=== PATIENT | male | born 1955 | race American Indian/Alaskan Native ===

== ENCOUNTER 2018-04-07 04:30 | Emergency (ER) | payer SELFPAY ==
[2018-04-07 05:21] LABS: Basophils % (Auto) 0.5 % (0.0-1.8); Hemoglobin 14.9 gm/dl (11.8-15.2); Lymphocytes # (Auto) 0.5 K/mm3 (1.2-5.4); Lymphocytes % (Auto) 10.7 % (13.4-35.0); Mean Corpuscular HGB Conc 34 % (32-34); Mean Corpuscular Volume 85 fl (84-94); Monocytes # (Auto) 0.1 K/mm3 (0.0-0.8); Monocytes % (Auto) 3.1 % (0.0-7.3); Platelet Count 161 K/mm3 (140-440); Red Blood Count 5.18 M/mm3 (3.65-5.03); Red Cell Distribution Width 14.8 % (13.2-15.2)
[2018-04-07 05:46] LABS: Alanine Aminotransferase 12 units/L (7-56); Albumin 4.3 g/dL (3.9-5); BUN/Creatinine Ratio 12; Blood Urea Nitrogen 7 mg/dL (9-20); Calcium 8.6 mg/dL (8.4-10.2); Hemolysis Index 77
[2018-04-07 06:28] LABS: Bilirubin,Urine NEG (Negative); Blood,Urine MOD (Negative); Color,Urine Yellow (Yellow); Hyaline Casts,Urine 1 /LPF; Mucus,Urine FEW /HPF; Protein,Urine <15 mg/dL mg/dL (Negative); Urobilinogen,Urine < 2.0 mg/dL (<2.0)
[2018-04-07] MEDS ORDERED: TYLENOL PO ONE (08:12)
--- NOTE | 2018-04-07 08:42 | Emergency Department Report ---
ED General Adult HPI - General Chief complaint: Abdominal Pain Stated complaint: URINARY RETENTION Time Seen by Provider: 04/07/18 06:39 Source: patient, EMS Mode of arrival: Stretcher Limitations: No Limitations - History of Present Illness Initial comments: This is a 63-year-old male with no primary care. He believes his hernia has caused urinary retention. He has not urinated for several hours. He has a right inguinal hernia which he's had for years and is reducible. He states he's never seen a surgeon there. He is also never seen a urologist. He is not complaining of any substantial pain remarkably. -: Gradual, hour(s) Location: abdomen (suprapubic discomfort) Radiation: non-radiation Severity scale (0 -10): 6 Quality: dull Consistency: intermittent Improves with: none Worsens with: none Associated Symptoms: denies other symptoms Treatments Prior to Arrival: none (except for urinary retention) - Related Data Previous Rx's Medication Instructions Recorded Last Taken Type Tramadol HCl [Ultram] 50 mg PO Q6H PRN #7 tablet 04/07/18 Unknown Rx Allergies Allergy/AdvReac Type Severity Reaction Status Date / Time No Known Allergies Allergy Unverified 04/07/18 04:44 ED Review of Systems ROS: Stated complaint: URINARY RETENTION Other details as noted in HPI Constitutional: denies: chills, fever Eyes: denies: eye pain, eye discharge, vision change ENT: denies: ear pain, throat pain Respiratory: denies: cough, shortness of breath, wheezing Cardiovascular: denies: chest pain, palpitations Endocrine: no symptoms reported Gastrointestinal: denies: abdominal pain, nausea, diarrhea Genitourinary: as per HPI, other. denies: urgency, dysuria Musculoskeletal: denies: back pain, joint swelling, arthralgia Skin: denies: rash, lesions Neurological: denies: headache, weakness, paresthesias Psychiatric: denies: anxiety, depression Hematological/Lymphatic: denies: easy bleeding, easy bruising ED Past Medical Hx - Past Medical History Previous Medical History?: Yes Additional medical history: Hernia - Surgical History Past Surgical History?: No - Social History Smoking Status: Current Every Day Smoker Substance Use Type: Alcohol - Medications Home Medications: Home Medications Medication Instructions Recorded Confirmed Last Taken Type Tramadol HCl [Ultram] 50 mg PO Q6H PRN #7 tablet 04/07/18 Unknown Rx ED Physical Exam - General Limitations: No Limitations General appearance: alert, in no apparent distress - Head Head exam: Present: atraumatic, normocephalic - Eye Eye exam: Present: normal appearance. Absent: scleral icterus - ENT ENT exam: Present: mucous membranes moist - Neck Neck exam: Present: normal inspection - Respiratory Respiratory exam: Present: normal lung sounds bilaterally. Absent: respiratory distress - Cardiovascular Cardiovascular Exam: Present: regular rate, normal rhythm. Absent: systolic murmur, diastolic murmur, rubs, gallop - GI/Abdominal GI/Abdominal exam: Present: soft, distended (obvious distended bladder to the suprapubic region below the umbilicus), normal bowel sounds, hernia (reducible right inguinal hernia). Absent: tenderness, guarding, rebound, rigid - Rectal Rectal exam: Present: deferred - Extremities Exam Extremities exam: Present: normal inspection - Back Exam Back exam: Present: normal inspection - Neurological Exam Neurological exam: Present: alert, oriented X3, CN II-XII intact. Absent: motor sensory deficit - Psychiatric Psychiatric exam: Present: normal affect, normal mood - Skin Skin exam: Present: warm, dry, intact, normal color. Absent: rash ED Course Vital Signs 04/07/18 04/07/18 04/07/18 04:43 04:45 04:46 Temperature 98.3 F Pulse Rate 77 80 81 Respiratory 13 20 13 Rate Blood Pressure 144/77 142/77 O2 Sat by Pulse 94 96 96 Oximetry 04/07/18 04/07/18 04/07/18 05:15 05:21 05:30 Temperature Pulse Rate Respiratory 21 16 22 Rate Blood Pressure 128/70 128/70 O2 Sat by Pulse 96 97 95 Oximetry 04/07/18 04/07/18 04/07/18 05:45 06:00 06:30 Temperature Pulse Rate Respiratory 19 22 17 Rate Blood Pressure 115/70 119/71 126/81 O2 Sat by Pulse 94 95 96 Oximetry 04/07/18 04/07/18 04/07/18 06:45 07:00 07:15 Temperature Pulse Rate 84 Respiratory 20 20 20 Rate Blood Pressure 125/79 122/65 131/79 O2 Sat by Pulse 97 94 96 Oximetry - Reevaluation(s) Reevaluation #1: Whitlock catheter with residual volume of 1200. Patient's symptoms improved. The right inguinal hernia was reducible. He is referred to GI and for follow-up. 04/07/18 08:39 Reevaluation #2: I suspect patient's mild hyperkalemia will clear up with diuresis post Whitlock. 04/07/18 08:40 ED Medical Decision Making - Lab Data Result diagrams: 04/07/18 05:08 04/07/18 05:08 Laboratory Results - last 24 hr 04/07/18 04/07/18 04/07/18 05:08 05:08 06:23 WBC 4.8 RBC 5.18 H Hgb 14.9 Hct 44.0 MCV 85 MCH 29 MCHC 34 RDW 14.8 Plt Count 161 Lymph % (Auto) 10.7 L [place] % (Auto) 3.1 Eos % (Auto) 0.0 Baso % (Auto) 0.5 Lymph # 0.5 L [place] # 0.1 Eos # 0.0 Baso # 0.0 Seg Neutrophils % 85.7 H Seg Neutrophils # 4.1 Sodium 133 L Potassium 5.1 H Chloride 93.8 L Carbon Dioxide 22 Anion Gap 22 BUN 7 L Creatinine 0.6 L Estimated GFR > 60 BUN/Creatinine Ratio 12 Glucose 74 L Calcium 8.6 Total Bilirubin 1.00 AST 27 ALT 12 Alkaline Phosphatase 49 Total Protein 6.9 Albumin 4.3 Albumin/Globulin Ratio 1.7 Lipase 18 Urine Color Yellow Urine Turbidity Clear Urine pH 5.0 Ur Specific [place] 1.004 Urine Protein <15 mg/dl Urine Glucose (UA) Neg Urine Ketones Neg Urine Blood Mod Urine Nitrite Neg Urine Bilirubin Neg Urine Urobilinogen < 2.0 Ur Leukocyte Esterase Neg Urine WBC (Auto) 1.0 Urine RBC (Auto) 1.0 U Epithel Cells (Auto) < 1.0 Hyaline Casts 1 Urine Mucus Few Critical care attestation.: If time is entered above; I have spent that time in minutes in the direct care of this critically ill patient, excluding procedure time. ED Disposition Clinical Impression: Bladder outlet obstruction, Reducible right inguinal hernia Disposition: - TO HOME OR SELFCARE Is pt being admited?: No Does the pt Need Aspirin: No Condition: Stable Instructions: Urinary Leg Bag (GEN), Whitlock Catheter Placement and Care (ED), Inguinal Hernia (ED) Additional Instructions: Return to the emergency department any acute change or problem. See referrals for appropriate problems and primary care. Prescriptions: Tramadol HCl [Ultram] 50 mg PO Q6H PRN #7 tablet PRN Reason: Pain, Moderate (4-6) Referrals: DORIS SAMUELS MD [Primary Care Provider] - 3-5 Days [facility] [Provider Group] - 3-5 Days MARCIN HOOKS MD [Staff Physician] - 3-5 Days [facility] [Provider Group] - 2-3 Days Time of Disposition: 08:43
[2018-04-07 10:18] VITALS: BP 110/66
== END 2018-04-07 10:15 | disposition home or self-care (01) ==
LOC: ED 04:30
DX: N32.0 Bladder-neck obstruction (principal); K40.90 Unilateral inguinal hernia, without obstruction or gangrene, not specified as recurrent; F17.200 Nicotine dependence, unspecified, uncomplicated
CPT/HCPCS: 36415; 51702; 80053; 81001; 83690; 85025

== ENCOUNTER 2018-04-13 12:34 | Emergency (ER) | payer SELFPAY ==
--- NOTE | 2018-04-13 12:44 | Emergency Department Report ---
Chief Complaint: Urogenital-Male Stated Complaint: CATHETER REMOVAL Time Seen by Provider: 04/13/18 12:42 - HPI History of Present Illness: pt had hatch cath placed last week here in ER has not been able to get into urology and pt wants cath out pt advised that the problem causing the retention has not been addressed and that removing cath too soon without eval may result in having to put it back in. No fever no pain no life threat identified Medical screen provided - Exam Vital Signs: Vital Signs 04/13/18 12:40 Temperature 98.4 F Pulse Rate 55 L Respiratory 18 Rate Blood Pressure 111/65 O2 Sat by Pulse 96 Oximetry MSE screening note: Focused history and physical exam performed. Due to findings the following was ordered: ED Disposition for MSE Condition: Stable
--- NOTE | 2018-04-13 16:21 | Emergency Department Report ---
ED Male HPI - General Chief complaint: Urogenital-Male Stated complaint: CATHETER REMOVAL Time Seen by Provider: 04/13/18 12:42 Source: patient Mode of arrival: Ambulatory Limitations: No Limitations - History of Present Illness Initial comments: This is a 63-year-old male here report that he came here on 04/07/2018 with abdominal pain and he had not urinated for a few hours and patient had a catheter placed and was referred to urology and also surgery. He was referred to surgery for right inguinal hernia which he said he had for years. He denies any pain at present. He just said that he feels like he cannot urinate now and he wants the catheter out. Patient did not see urology as yet he said he has an appointment for next Monday at [facility]. He has not seen surgery as yet. Denies any fever or chills. He reports he is having some burning and he thinks this when his bladder is empty. Denies any abdominal pain. He said the c atheter is draining very well. Denies any back pain. Denies any nausea or vomiting. MD Complaint: dysuria, other (here for catheter removal) Onset/Timin -: days(s) Severity scale (0 -10): 0 Improves with: none Worsens with: none urinary retention, dysuria. denies: discharge, swelling, mass - Related Data Sexually active: No Previous Rx's Medication Instructions Recorded Last Taken Type Tramadol HCl [Ultram] 50 mg PO Q6H PRN #7 tablet 04/07/18 Unknown Rx Ciprofloxacin HCl [Cipro] 500 mg PO Q12H 10 Days #20 tablet 04/13/18 Unknown Rx Phenazopyridine [Pyridium] 100 mg PO TID PRN 3 Days #9 tab 04/13/18 Unknown Rx Allergies Allergy/AdvReac Type Severity Reaction Status Date / Time No Known Allergies Allergy Verified 04/13/18 12:36 ED Review of Systems ROS: Stated complaint: CATHETER REMOVAL Other details as noted in HPI Constitutional: denies: chills, fever Respiratory: denies: cough, shortness of breath, wheezing Cardiovascular: denies: chest pain, palpitations Gastrointestinal: denies: abdominal pain, nausea, vomiting Genitourinary: dysuria, other (here for catheter removal). denies: frequency, hematuria, discharge Musculoskeletal: denies: back pain, joint swelling, arthralgia, myalgia Skin: denies: rash Neurological: denies: headache ED Past Medical Hx - Past Medical History Previous Medical History?: Yes Additional medical history: Hernia - Surgical History Past Surgical History?: Yes - Family History Family history: hypertension - Social History Smoking Status: Current Every Day Smoker Substance Use Type: None - Medications Home Medications: Home Medications Medication Instructions Recorded Confirmed Last Taken Type Tramadol HCl [Ultram] 50 mg PO Q6H PRN #7 tablet 04/07/18 Unknown Rx Ciprofloxacin HCl [Cipro] 500 mg PO Q12H 10 Days #20 tablet 04/13/18 Unknown Rx Phenazopyridine [Pyridium] 100 mg PO TID PRN 3 Days #9 tab 04/13/18 Unknown Rx ED Physical Exam - General Limitations: No Limitations General appearance: alert, in no apparent distress - Head Head exam: Present: atraumatic, normocephalic, normal inspection, other (normal exam) - Eye Eye exam: Present: normal appearance, PERRL, EOMI Pupils: Present: normal accommodation - ENT ENT exam: Present: normal orophraynx, mucous membranes moist, TM's normal bilaterally, normal external ear exam, other (patient) - Neck Neck exam: Present: normal inspection, full ROM. Absent: tenderness, lymphadenopathy - Respiratory Respiratory exam: Present: normal lung sounds bilaterally. Absent: respiratory distress, chest wall tenderness - Cardiovascular Cardiovascular Exam: Present: normal rhythm, bradycardia, normal heart sounds - GI/Abdominal GI/Abdominal exam: Present: soft. Absent: distended, tenderness, rigid - exam: Present: normal inspection, circumcision, other (Whitlock catheter in place). Absent: testicular tenderness, urethral discharge, scrotal swelling, vertical testicular lie External exam: Present: normal external exam, other (urine is slightly dark). Absent: erythema, swelling, lesions, lacerations, ecchymosis, bleeding - Expanded Exam Expanded Male exam: Absent: phimosis, paraphimosis, penile swelling, lesions, induration, erythema, perineal induration, balanitis, priapism, other exam: Inguinal Hernia: Right (reducible) - Extremities Exam Extremities exam: Present: normal inspection, full ROM, normal capillary refill. Absent: tenderness, pedal edema, joint swelling, calf tenderness - Back Exam Back exam: Present: normal inspection, full ROM, other (No cce. + 2 pulses in all extremities, no neurovascular compromise). Absent: tenderness, CVA t enderness (R), CVA tenderness (L), muscle spasm, paraspinal tenderness, vertebral tenderness, rash noted - Neurological Exam Neurological exam: Present: alert, oriented X3 (right ear), normal gait, reflexes normal, other. Absent: motor sensory deficit - Psychiatric Psychiatric exam: Present: normal affect, normal mood - Skin Skin exam: Present: warm, dry, intact, normal color. Absent: rash ED Course Vital Signs 04/13/18 04/13/18 04/13/18 12:40 18:13 18:14 Temperature 98.4 F Pulse Rate 55 L 99 H 95 H Respiratory 18 16 Rate Blood Pressure 111/65 121/77 Blood Pressure [Right] O2 Sat by Pulse 96 98 98 Oximetry 04/13/18 19:45 Temperature 98.4 F Pulse Rate 92 H Respiratory 13 Rate Blood Pressure Blood Pressure 120/74 [Right] O2 Sat by Pulse 99 Oximetry - Reevaluation(s) Reevaluation #1: 04/13/18 19:17 Patient stable throughout ED course. He is making in large amount of urine from Whitlock deficits attached leg bag. Patient has UTI so he has an appointment with urology next Monday and I told him that he will need to keep the catheter in until he sees urology. ED Medical Decision Making - Lab Data Lab Results 04/13/18 Range/Units 16:34 Urine Color Jessica (Yellow) Urine Turbidity Slightly-cloudy (Clear) Urine pH 5.0 (5.0-7.0) Ur Specific [place] 1.031 H (1.003-1.030) Urine Protein 100 mg/dl (Negative) mg/dL Urine Glucose (UA) Neg (Negative) mg/dL Urine Ketones Neg (Negative) mg/dL Urine Blood Lg (Negative) Urine Nitrite Neg (Negative) Urine Bilirubin Neg (Negative) Urine Urobilinogen 4.0 (<2.0) mg/dL Ur Leukocyte Esterase Tr (Negative) Urine WBC (Auto) 12.0 H (0.0-6.0) /HPF Urine RBC (Auto) > 182.0 (0.0-6.0) /HPF Urine Mucus 3+ /HPF Urine culture sent home - Medical Decision Making This is a 63-year-old male here for Whitlock catheter removal that was placed on 04/07/2018 for obstruction due to hernia. Patient has an appointment with [facility] for one week from today and he was found to have a urinary tract infection. I discussed lab report with them, diagnosis and told him that he will need to see urologist before catheter can come up. Patient does not have any abdominal pain but he was having urinary burning as he said when he says the catheter is emptying in leg bag. Urine culture sent. Patient discharged home in stable condition with prescription for Pyridium and ciprofloxacin. He understands that he needs to follow up with urologist on appointment today and also he was referred to surgeon for hernia when he was here last He said he called to schedule an appointment. Vital signs stable afebrile and in no acute distress. I also told him that he needs to clean the Whitlock catheter around were his penile opening is taking with soap and warm water and he voiced understanding Critical care attestation.: If time is entered above; I have spent that time in minutes in the direct care of this critically ill patient, excluding procedure time. ED Disposition Clinical Impression: UTI (urinary tract infection) Qualifiers: Urinary tract infection type: acute cystitis Hematuria presence: with hematuria Qualified Code(s): N30.01 - Acute cystitis with hematuria Disposition: - TO HOME OR SELFCARE Is pt being admited?: No Does the pt Need Aspirin: No Condition: Stable Instructions: Urinary Tract Infection in Men (ED), Dysuria (ED) Additional Instructions: Take antibiotic and pyridium as prescribed. follow up with specialist as prescribed If your symptoms worsens, return ti ED Prescriptions: Ciprofloxacin HCl [Cipro] 500 mg PO Q12H 10 Days #20 tablet Phenazopyridine [Pyridium] 100 mg PO TID PRN 3 Days #9 tab PRN Reason: urine burning Referrals: MONTY LEMON [Provider Group] - 04/20/18
[2018-04-13 17:37] LABS: Bilirubin,Urine NEG (Negative); Blood,Urine LG (Negative); Color,Urine Amber (Yellow); Mucus,Urine 3+ /HPF
[2018-04-13 17:50] LABS: RBC,Urine > 182.0 /HPF (0.0-6.0)
[2018-04-13 19:46] VITALS: BP 120/74
== END 2018-04-13 19:45 | disposition home or self-care (01) ==
LOC: ED 12:34
DX: N39.0 Urinary tract infection, site not specified (principal); Z46.6 Encounter for fitting and adjustment of urinary device; F17.200 Nicotine dependence, unspecified, uncomplicated
CPT/HCPCS: 81001